=== PATIENT | male | born 1965 | race African-American/Black ===

== ENCOUNTER 2016-09-30 00:57 | Emergency (ER) | payer MEDICAID ==
[~2016-09-30] VITALS: Ht 182.9 cm; Wt 65.0 kg
[2016-09-30] MEDS ORDERED: MORPHINE SULFATE 10 MG/ML CPJ IM ONE ×2 (03:45→04:45)
[2016-09-30] MEDS ORDERED: ONDANSETRON 4MG ODT PO ONE (03:45)
[2016-09-30 07:05] VITALS: BP 138/81
== END 2016-09-30 10:00 | disposition home or self-care (01) ==
LOC: ER 00:58
DX: S82.64XA Nondisplaced fracture of lateral malleolus of right fibula, initial encounter for closed fracture (principal); W01.0XXA Fall on same level from slipping, tripping and stumbling without subsequent striking against object, initial encounter; Y92.488 Other paved roadways as the place of occurrence of the external cause
CPT/HCPCS: 29515; 73590; 73610; 96372; 99284; J2270; Q0162; Z7610